=== PATIENT | female | born 1960 | race Caucasian/White ===

== ENCOUNTER 2020-07-08 07:34 | Emergency (ER) | payer BC, SELFPAY ==
--- NOTE | ~2020-07-08 | XR_ITS ---
EXAMINATION: XR FOOT, RIGHT CLINICAL INFORMATION: Fall, right foot pain COMPARISON: None TECHNIQUE: AP, lateral, and oblique views of the right foot. FINDINGS: There is minimally displaced fracture base of fifth metatarsal with mild soft tissue swelling. No additional fracture seen. The ankle mortise and subtalar subtalar joints are normal. Small calcaneal enthesophyte is seen. XR/XR foot RT 2V IMPRESSION: Minimally displaced fracture base of fifth metatarsal with mild soft tissue swelling.
[2020-07-08 08:05] VITALS: BP 134/59; PULSE 78; RESP 18; TEMP 37.1; O2SAT 98; BMI 23.1
--- NOTE | 2020-07-08 09:14 | ED_ITS ---
HPI - Extremity Injury (Lower) General Chief Complaint: Extremity Injury, Lower Stated Complaint: rt foot injury Time Seen by Provider: 07/08/20 08:43 Source: patient Mode of arrival: ambulatory Limitations: no limitations History of Present Illness HPI Narrative: 59-year-old female presenting to the ED with complaints of right foot pain after she had a mechanical fall yesterday while walking her puppy outside. She denies head injury or loss of consciousness. She denies being on any blood thinners. Denies any numbness or tingling or any other symptoms complaints or concerns at this time. complaint: foot injury Onset (ago): day(s) (Yesterday) Type of Injury: other (Twist injury) Place: home Severity: moderate Relieving factors: nothing Exacerbating factors: weight bearing, movement and palpation Context: fall Associated symptoms: swelling and able to partially bear weight Other symptoms: none Related Data Previous Rx's Medication Instructions Recorded acetaminophen [Tylenol Extra 500 mg PO Q6H PRN #14 tab 07/08/20 Strength] naproxen 500 mg PO BID PRN #10 tab 07/08/20 oxycodone 5 mg PO BID PRN #10 tab 07/08/20 Allergies Allergy/AdvReac Type Severity Reaction Status Date / Time No Known Allergies Allergy Verified 07/08/20 08:58 Review of Systems Review of Systems: Constitutional : No changes in activity, No lethargy, No recent prior head injury, No agitation, No increased fussiness ENT/Mouth : No Ear Pain, No Nasal discharge/drainage Eyes: No Eye Pain, No Swelling, No Redness, No Foreign Body, No Vision Changes Cardiovascular : No Chest Pain, No SOB Respiratory : No Cough Gastrointestinal : No Nausea, No Vomiting, No abdominal Pain Genitourinary : No Dysuria, No Urinary Frequency, No Urinary Incontinence, No Urgency, No Flank Pain Musculoskeletal : + joint pain, No neck stiffness, No back pain/injury Skin : No lacerations Neuro : No unsteady gait, No Paresthesias, No Loss of Consciousness, No altered mental status, No Headache Yes all other systems are reviewed and are negative [facility] Past Medical History Attestation statement: The following information was validated with the patient. Medical History Patient denies significant medical history Surgical History No pertinent past surgical history Social History Social History Smoked in Last 30 Days: No Use of substances other than those prescribed or required for medical reasons: No Advance Directives: Yes Advance Directives Information Provided: Yes Advance Directives on File: No Physical Exam Vital Signs: Vital Signs: Last Vital Signs Temp 98.8 F 07/08/20 08:05 Pulse 78 07/08/20 08:05 Resp 18 07/08/20 08:05 BP 134/59 L 07/08/20 08:05 Pulse Ox 98 07/08/20 08:05 Body Mass Index 23.1 vital signs have been reviewed as normal and appeared to be correct. Blood pressure normal. Heart rate normal. Respiration rate normal. Temperature normal. Oxygen saturation normal. Appearance: Alert. Oriented X3. No acute distress. Head: Normal external exam. Normocephalic. Atraumatic. No Box signs noted. No raccoon eyes noted Eyes: PERRLA. EOMI. Conjunctiva and sclera normal. Eyelids normal. ENT: Pharynx normal. Uvula midline. Moist mucous membranes. Neck: Normal inspection. Neck supple. FROM. No adenopathy. Thyroid Normal. No meningeal signs. No neck mass noted. CVS: Normal heart rate and rhythm. Heart sound normal. No murmurs noted. Pulses normal throughout. Respiratory: No respiratory distress. Painless inspiration. Breath sounds normal. No wheezes/rales/rhonchi noted. Chest nontender. No accessory muscle u pebbles noted or decreased air movement noted. Back: Full range of motion noted. Skin: Skin warm and dry. Normal skin color. Normal skin turgor. No rashes/lesions/lacerations noted. Extremities: Patient moderate tenderness to palpation to right 5th metatarsal with soft tissue swelling and ecchymosis noted. No signs of infection. No laxity noted to the toes/ankle/foot joint. Patient has a limping gait due to pain otherwise all other Extremities exhibit normal range of motion and nontender. Neuro: Oriented X 3. No motor deficit. No sensory deficit. Reflexes normal. Course Course Course Narrative: Consulted with [facility] orthopedics and she recommending ortho boot with weight-bearing as tolerated and to follow up within the next week or 2. Patient understands agrees with this plan. Procedures Orthopedic Splinting/Casting Injury #1: Side: right Lower Extremity Injury Location: foot Lower Extremity Immobilizer: boot orthosis MDM - Extremity Injury (Lower) Medical Records Attestation: I reviewed the patient's medical records. Imaging Data Right foot x-ray: Attestation: I personally reviewed and interpreted this imaging study as follows: Radiologist's impression: FINDINGS: There is minimally displaced fracture base of fifth metatarsal with mild soft tissue swelling. No additional fracture seen. The ankle mortise and subtalar subtalar joints are normal. Small calcaneal enthesophyte is seen. XR/XR foot RT 2V IMPRESSION: Minimally displaced fracture base of fifth metatarsal with mild soft tissue swelling. Discharge Plan Discharge Clinical Impression: Fracture of fifth metatarsal bone of right foot Qualifiers: Encounter type: initial encounter Fracture type: closed Fracture alignment: nondisplaced Qualified Code(s): S92.354A - Nondisplaced fracture of fifth metatarsal bone, right foot, initial encounter for closed fracture Patient Disposition: Home, Self-Care Instructions: Toe Fracture (ED), Walking Boot (ED) Prescriptions: New acetaminophen [Tylenol Extra Strength] 500 mg tablet 500 mg PO Q6H PRN (Reason: pain) Qty: 14 RF: 0 oxycodone 5 mg tablet 5 mg PO BID PRN (Reason: pain) Qty: 10 RF: 0 naproxen 500 mg tablet 500 mg PO BID PRN (Reason: pain) Qty: 10 RF: 0 Referrals: Aly Baldwin MD [Physician] - 2 days (Call today or tomorrow to make a follow-up appointment within the next week or 2) Print Language: Tajik
== END 2020-07-08 09:35 | disposition home or self-care (01) ==
PROVIDERS: Emergency Provider Emergency Medicine Emergency Medical Services; PCP Internal Medicine
DX: S92.354A Nondisplaced fracture of fifth metatarsal bone, right foot, initial encounter for closed fracture (principal); M79.674 Pain in right toe(s); X58.XXXA Exposure to other specified factors, initial encounter; Y93.K1 Activity, walking an animal; Y92.480 Sidewalk as the place of occurrence of the external cause; Y99.9 Unspecified external cause status; Z79.899 Other long term (current) drug therapy
CPT/HCPCS: 29515; 73620; 99284

== ENCOUNTER → 2020-07-14 10:24 | Outpatient (BNVA) | payer BC, SELFPAY | PROVIDERS: Visit Provider Physician Assistant ==

== ENCOUNTER 2020-09-08 09:00 | Outpatient (RCR) | payer BC, SELFPAY ==
--- NOTE | 2020-09-01 09:06 | MHC.PT.EP ---
[facility] [place] [facility] [place] [facility] [place] Office [address] [phone] F: [phone] F: [phone] F: [phone] F: [phone] Physical Therapy Plan of Care Date of Evaluation: Date of Surgery: Diagnosis: displaced cuboid Fx of R foot. Assessment: Pt is a 60 y/o [facility] [place] referred to PT for eval and treat s/p R cuboid Fx resulting in decreased tolerance and ability for negotiating stairs, standing and walking for duration, performing heavy HH chores, as well as performing squatting activities secondary to decreased R ankle and R hip strength, mild decreased R ankle DF ROM, gait abnormalities, healing process and pain. Pt is deemed an appropriate candidate to receive skilled PT in order to address her physical limitations to improve her functional ability. Frequency and Duration: The patient will be seen 2 x/ wk x 5 wks. Short Term Goals: Initiate HEP with evidence of compliance Improve baseline pain with activity to < 4/10. Senior Care Goals: Descends stairs with reciprocal fashion. Symmetrical gait achieved. I with home program. Treatment Plan: Modalities to reduce pain, spasms and effusion. Manual therapy to restore motion and function. Therapeutic exercise to improve strength and flexibility. Neuromuscular re-education for posture and balance. Therapeutic activities to return to functional activities of daily living. Electronically signed by: Maury Randolph PT. Please sign and return to therapist. Thank you for your referral.
--- NOTE | 2020-11-10 18:03 | MHC.PT.DC ---
[facility] [place] Office [place] Office [place] Office [address] Anjali Crandall [address] [phone] F: [phone] F: [phone] F: [phone] F: [phone] Physical Therapy Discharge Report Diagnosis: displaced cuboid Fx of R foot. Date of Surgery: Date of Evaluation: 08/31/20 Date of Discharge: 11/10/20 Treatments to Date: 3 Cancellations to Date: No Shows to Date: Discharge Status: Patient Elected to Stop Discharge Summary: Pt VERY MOTIVATED TO IMPROVE HER OVERALL FUNCTIONAL MOBILITY AND CONFIDENCE IN Rt DISTAL LE. SHE BENFITTED FROM VC WHILE ON TM TO IMPROVE GAIT [facility]. Electronically signed by: Maury Randolph PT Please sign and return to therapist. Thank you for your referral.
== END 2020-11-10 18:03 | disposition home or self-care (01) ==
LOC: HO.PTCHIC 09:00
PROVIDERS: Visit Provider Physician Assistant
DX: S92.211A Displaced fracture of cuboid bone of right foot, initial encounter for closed fracture (principal)
CPT/HCPCS: 97110; 97112; 97161; 97530

== ENCOUNTER 2020-09-21 07:23 | Outpatient (REF) | payer BC, SELFPAY ==
--- NOTE | ~2020-09-21 | XR_ITS ---
EXAMINATION: XR FOOT, RIGHT CLINICAL INFORMATION: Fracture. COMPARISON: Most recent right foot radiographs dated 06/30/2020. TECHNIQUE: AP, lateral, and oblique views of the right foot. FINDINGS: Redemonstration of a transverse fracture through the base of the 5th metatarsal in unchanged anatomic alignment. Mild cortication along the fracture line without significant osseous bridging when compared to the prior examination. Mild overlying soft tissue swelling. No osseous erosion. Tiny plantar calcaneal spur. XR/XR foot RT min 3V IMPRESSION: Chronic fracture through the base of the 5th metatarsal with mild cortication along the fracture line and no increase in osseous bridging. Findings could indicate nonunion.
== END 2020-09-21 07:24 | disposition home or self-care (01) ==
LOC: HO.HOSX 07:23
PROVIDERS: Visit Provider Physician Assistant
DX: S92.351D Displaced fracture of fifth metatarsal bone, right foot, subsequent encounter for fracture with routine healing (principal); S92.211D Displaced fracture of cuboid bone of right foot, subsequent encounter for fracture with routine healing
CPT/HCPCS: 73630